=== PATIENT | male | born 2000 | race Caucasian/White ===

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

== ENCOUNTER 2019-08-25 07:32 | Emergency (ER) | payer BC, OTHER ==
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
== END 2019-08-25 08:45 | disposition home or self-care (01) ==
LOC: MW.ED 07:32
DX: F41.9 Anxiety disorder, unspecified (principal)
CPT/HCPCS: 99283

== ENCOUNTER 2022-03-28 23:26 | Emergency (ER) | payer BC, OTHER ==
[2022-03-29] MEDS ORDERED: Azithromycin 250 MG Tab PO STA (00:36)
== END 2022-03-29 00:44 | disposition home or self-care (01) ==
LOC: MW.ED 23:26
DX: H66.91 Otitis media, unspecified, right ear (principal); H60.91 Unspecified otitis externa, right ear; H72.91 Unspecified perforation of tympanic membrane, right ear; Z79.899 Other long term (current) drug therapy
CPT/HCPCS: 99282; A9270